=== PATIENT | female | born 1960 | race Caucasian/White ===

== ENCOUNTER 2023-01-27 08:39 | Day surgery (SDC) | payer BC, OTHER ==
[2023-01-21 15:47] LABS: BASOPHILS # (AUTO) 0.1 X10'3 (0-0.2); BASOPHILS % (AUTO) 0.8 % (0-1); EOSINOPHILS # (AUTO) 0.2 X10'3 (0-0.9); EOSINOPHILS % (AUTO) 2.1 % (0-6); HEMATOCRIT 40.6 % (35.0-45.0); HEMOGLOBIN 13.9 g/dl (12.0-16.0); LYMPHOCYTES # (AUTO) 3.3 X10'3 (1.1-4.8); LYMPHOCYTES % (AUTO) 27.7 % (21-51); MEAN CORPUSCULAR HEMOGLOBIN 32.9 PG (27.0-31.0); MEAN CORPUSCULAR HGB CONC 34.2 g/dL (33.0-36.5); MEAN CORPUSCULAR VOLUME 96.4 FL (78-98); MONOCYTES # (AUTO) 0.8 X10'3 (0-0.9); MONOCYTES % (AUTO) 6.9 % (2-12); NEUTROPHILS # (AUTO) 7.4 X10'3 (1.8-7.7); NEUTROPHILS % (AUTO) 62.5 % (42-75); PLATELET COUNT 254 X10'3 (140-440); RED BLOOD COUNT 4.21 X10'6 (4.20-5.60); RED CELL DISTRIBUTION WIDTH 14.2 % (11.5-14.5); WHITE BLOOD COUNT 11.8 X10'3 (4.5-11.0)
[2023-01-21 16:01] LABS: ALANINE AMINOTRANSFERASE 28 U/L (12-78); ALBUMIN 3.7 G/DL (3.4-5.0); ALBUMIN/GLOBULIN RATIO 1.2 (1.1-1.5); ALKALINE PHOSPHATASE 86 IU/L (46-116); ANION GAP 7 (8-16); BILIRUBIN,TOTAL 0.3 MG/DL (0.1-1.0); BLOOD UREA NITROGEN 20 MG/DL (7-18); BUN/CREATININE RATIO 23.8 (10.0-20.0); CALCIUM 8.5 MG/DL (8.5-10.1); CHLORIDE 104 MMOL/L (99-107); CREATININE 0.84 MG/DL (0.40-0.90); SODIUM 138 MMOL/L (135-145); TOTAL PROTEIN 6.9 G/DL (6.4-8.2); eGFR 69 ML/MIN
[2023-01-21 16:24] LABS: POTASSIUM 3.4 MMOL/L (3.5-5.1)
[2023-01-21 16:31] LABS: ASPARTATE AMINO TRANSFERASE 18 U/L (10-37); GLUCOSE 138 MG/DL (70-104)
[2023-01-27] VITALS (7 sets, daily range): BP systolic 138–156; BP diastolic 56–87; PULSE 64–90; RESP 11–16; TEMP 98.1; O2SAT 95–100
[~2023-01-27] VITALS: Ht 165.1 cm; Wt 72.6 kg
[~2023-01-27 08:39] MED LIST: BUPIVAcaine/PF 2.5 mg/ml (0.25%) 30ml vial ONE; SUMA25TA9 PO; albuterol 2.5 MG/3 ML nebule NEB PRN; famotidine 20mg tablet PO ONE; levoFLOXACIN-Levaquin 500mg/D5 100 ML IV ONE; ringers solution, lacted 1,000 ML IV SCH
[2023-01-27] MEDS ORDERED: labetalol 20mg/4ml (5mg/ml) syringe IV PRN (10:20)
[2023-01-27] MEDS ORDERED: morphine 4 MG/ML inj SYRINge IV PRN (10:20)
[2023-01-27] MEDS ORDERED: ringers solution, lacted 1,000 ML IV SCH (10:20)
[2023-01-27] MEDS ORDERED: morphine 2 MG/ML inj. syringe IV PRN (10:20)
[2023-01-27] MEDS ORDERED: ondansetron/PF 4mg/2ml inj IV PRN (10:20)
[2023-01-27] MEDS ORDERED: hydrALAZINE 20mg/ml inj. IV PRN (10:20)
[2023-01-27] MEDS ORDERED: fentaNYL/PF 50MCG/1 ML 2ML syringe IV PRN ×2 (10:20)
[2023-01-27] MEDS ORDERED: ePHEDrine 50MG/ML INJ. ONE (11:16)
[2023-01-27] MEDS ORDERED: desflurane 240ml liquid inh. IH ONE (11:16)
[2023-01-27] MEDS ORDERED: fentaNYL/PF 50MCG/1 ML 2ML syringe ONE (11:22)
[2023-01-27] MEDS ORDERED: midazolam 1 mg/ML 2ml injection ONE (11:22)
[2023-01-27] MEDS ORDERED: LIDOcaine 2% (20mg/ml) 5ml vial ONE (11:26)
[2023-01-27] MEDS ORDERED: ondansetron/PF 4mg/2ml inj ONE (11:26)
[2023-01-27] MEDS ORDERED: dexamethasone sod phosphate 4mg/ml inj. ONE (11:26)
[2023-01-27] MEDS ORDERED: propofol inj 20 ML IV ONE (11:26)
[2023-01-27] MEDS ORDERED: acetaminophen 1,000mg/100ml IV 100 ML IV ONE (11:27)
--- NOTE | 2023-01-27 12:37 | NUR ---
Received from OR via , accompanied by Anesthesiologist DR BAILEY and report given by Anesthesiolgist. VSS. IV IN RIGHT SRIST 20G NO ISSUES. DRESSING WITH BLUE BINDER BILAT. BREASTS. ON MASK 8 LITERS SATTING AT 100% Addendum: 01/27/23 at 1309 by Kayla Jorge RN Amended: Links added.
--- NOTE | 2023-01-27 13:27 | NUR ---
PATIENT MEETS DISCHARGE CRITERIA. VSS. IV DC'D WITH NO ISSUES. WENT OVER DISCHARGE INSTRUCTIONS WITH PATIENT. WHEELED PATIENT TO HER 'S CAR. Addendum: 01/27/23 at 1357 by Kayla Jorge RN Amended: Links added.
== END 2023-01-27 13:27 | disposition home or self-care (01) ==
LOC: PAS 08:39
PROVIDERS: ATTEND Surgery
DX: C50.412 Malignant neoplasm of upper-outer quadrant of left female breast (principal); G47.30 Sleep apnea, unspecified; F17.210 Nicotine dependence, cigarettes, uncomplicated; Z72.89 Other problems related to lifestyle; F12.90 Cannabis use, unspecified, uncomplicated; Z79.899 Other long term (current) drug therapy; Z88.0 Allergy status to penicillin; Z90.710 Acquired absence of both cervix and uterus; Z98.890 Other specified postprocedural states
CPT/HCPCS: 19301; 36415; 38525; 38900; 80053; 82948; 85025; J0131; J1100; J1956; J2250; J2270; J2405; J2704; J3010; J3490; J7030; J7120; Z7506; Z7508; Z7512; A4215; A4618; A6449; A7000